=== PATIENT | female | born 1990 | race Hispanic/Latino ===

== ENCOUNTER 2021-02-04 14:03 | Day surgery (SDC) | payer OTHER ==
[2021-02-04 14:53] VITALS: BMI 38.1
[2021-02-04] MEDS ORDERED: hydrALAZINE 20 MG/ML VIAL SLOW IVP PRN (15:23)
[2021-02-04 15:50] LABS: Bilirubin Neg (Negative); Blood, Urine Negative (Negative); Clarity Clear (Clear); Glucose, Urine (Dipstick) Normal (Negative); Ketone, Urine Negative (Negative); Leukocyte 25 (Negative); Nitrite Negative (Negative); Protein, Urine (Dipstick) Negative (Neg-Trace); Specific Gravity, Urine 1.005 (1.002-1.036); Urobilinogen Normal mg/dL (Less than 2)
[2021-02-04 16:05] LABS: Bacteria/HPF 3+ HPF (None Seen); Epithelial Cast 0-3 LPF (None Seen); Mucous/LPF 1+ LPF (<2+); RBC/HPF None Seen HPF (0-3); WBC/HPF 0-3 HPF (0-3)
[2021-02-04] MEDS ORDERED: Acetaminophen 500 MG TAB PO SCH (17:00)
[2021-02-04] MEDS ORDERED: Cephalexin 500 MG CAP PO SCH (17:00)
[2021-02-04] MEDS ORDERED: Promethazine HCl 25 MG/ML VIAL IM SCH (17:00)
[2021-02-04] MEDS ORDERED: Butorphanol Tartrate 1 MG/ML VIAL IM SCH (17:00)
[2021-02-05] MEDS ORDERED: Cephalexin 500 MG CAP PO SCH (09:00)
== END 2021-02-04 17:55 | disposition home or self-care (01) ==
LOC: CSHLD/OP 14:03
PROVIDERS: ATTEND Obstetrics & Gynecology
DX: O47.1 False labor at or after 37 completed weeks of gestation (principal); O99.891 Other specified diseases and conditions complicating pregnancy; O99.013 Anemia complicating pregnancy, third trimester; R03.0 Elevated blood-pressure reading, without diagnosis of hypertension; R30.0 Dysuria; Z3A.37 37 weeks gestation of pregnancy; Z87.59 Personal history of other complications of pregnancy, childbirth and the puerperium
CPT/HCPCS: 81001; 87086; J0595; J2550

== ENCOUNTER 2021-02-12 08:33 | Outpatient (CLI) | payer OTHER ==
[2021-02-12 17:36] LABS: SARS-CoV-2 PCR by NAA Not Detected (NotDetected)
== END 2021-02-12 08:34 | disposition home or self-care (01) ==
LOC: CSHLAB 08:33
PROVIDERS: ATTEND Emergency Medicine
DX: Z01.812 Encounter for preprocedural laboratory examination (principal); Z20.822 Contact with and (suspected) exposure to COVID-19
CPT/HCPCS: U0003; U0005

== ENCOUNTER 2021-02-12 12:15 | Day surgery (SDC) | payer OTHER ==
[2021-02-12] MEDS ORDERED: hydrALAZINE 20 MG/ML VIAL SLOW IVP PRN (14:20)
== END 2021-02-12 17:40 | disposition home health service (06) ==
LOC: CSHLD/OP 12:15
DX: O99.891 Other specified diseases and conditions complicating pregnancy (principal); R03.0 Elevated blood-pressure reading, without diagnosis of hypertension; M24.20 Disorder of ligament, unspecified site; Z3A.38 38 weeks gestation of pregnancy; Z87.59 Personal history of other complications of pregnancy, childbirth and the puerperium; Z79.2 Long term (current) use of antibiotics
CPT/HCPCS: 99283

== ENCOUNTER 2021-02-15 19:00 | Inpatient (IN) | payer MEDICAID, OTHER, SELFPAY ==
[2021-02-15 20:48] VITALS: BMI 37.3
[2021-02-15] MEDS ORDERED: Ibuprofen 800 MG TAB PO PRN (21:03)
[2021-02-15] MEDS ORDERED: Promethazine HCl 25 MG/ML VIAL IM PRN (21:03)
[2021-02-15] MEDS ORDERED: hydrALAZINE 20 MG/ML VIAL SLOW IVP PRN (21:03)
[2021-02-15] MEDS ORDERED: Acetaminophen 500 MG TAB PO PRN (21:03)
[2021-02-15] MEDS ORDERED: Carboprost 250 MCG/ML AMP IM PRN (21:03)
[2021-02-15] MEDS ORDERED: Lidocaine 1% (PF) 30 ML VIAL SC PRN (21:03)
[2021-02-15] MEDS ORDERED: Misoprostol 200 MCG TAB PR PRN (21:03)
[2021-02-15] MEDS ORDERED: Ondansetron PF 4 MG/2 ML Vial IVP PRN (21:03)
[2021-02-15] MEDS ORDERED: NS w/ Oxytocin 30 units 500 ML IV SCH (21:15)
[2021-02-15] MEDS ORDERED: Lactated Ringer's 1,000 ML IV SCH (21:15)
[2021-02-15] MEDS ORDERED: Morphine 4 MG/ML VIAL SLOW IVP PRN (21:17)
[2021-02-15] MEDS ORDERED: Misoprostol 100 MCG TAB ONE (21:18)
[2021-02-15 22:00] LABS: Hemoglobin 10.3 g/dL (12.0-15.5); Mean Corpuscular HGB CONC 33.7 g/dL (32.0-36.0); Mean Corpuscular Hemoglobin 29.9 pg (27.0-33.0); Mean Corpuscular Volume 88.7 fl (81.6-98.3); Mean Platelet Volume 11.8 fl (7.4-10.4); Platelet Count 240 10x3/uL (150-450); RBC Distribution Width 13.5 % (11.5-14.5); Red Blood Cell (RBC) Count 3.45 10x6/uL (3.90-5.03); White Blood Cell (WBC) Count 11.3 10x3/uL (3.5-10.5)
[2021-02-15 22:31] LABS: Hep B Surf Ag Non-Reactive S/CO (NonReactive); Syphilis Antibody Nonreactive (Nonreactive); Syphilis Antibody Index 0.03 S/CO (<1.00 Non-Reactive)
[2021-02-15 22:38] LABS: HBSAg Index 0.17 S/CO (0-0.99)
[2021-02-16] MEDS: Misoprostol 100 MCG TAB VAG SCH ×2 (01:01→07:38)
[2021-02-16] MEDS ORDERED: Fentanyl 2 mcg/Bup 0.1% Cadd 100 ML ONE (02:09)
[2021-02-16] MEDS: NS w/ Oxytocin 30 units 500 ML IV SCH ×2 (02:48→05:08)
[2021-02-16] MEDS ORDERED: diphenhydrAMINE 25 MG CAP PO PRN (05:08)
[2021-02-16] MEDS ORDERED: Bisacodyl 10 MG SUPP PR PRN (05:08)
[2021-02-16] MEDS ORDERED: Misoprostol 200 MCG TAB VAG PRN (05:08)
[2021-02-16] MEDS ORDERED: Milk Of Magnesia 30 ML UDCUP PO PRN (05:08)
[2021-02-16] MEDS ORDERED: Lanolin Ointment 7 GM TUBE TOP PRN (05:08)
[2021-02-16] MEDS ORDERED: Benzocaine-Menthol 82.5 ML CAN TOP PRN (05:08)
[2021-02-16] MEDS ORDERED: Boostrix 0.5 ML (Tdap) VIAL IM ONE (05:08)
[2021-02-16] MEDS ORDERED: hydrALAZINE 20 MG/ML VIAL SLOW IVP PRN (05:08)
[2021-02-16] MEDS ORDERED: Ondansetron PF 4 MG/2 ML Vial IVP PRN (05:08)
[2021-02-16] MEDS ORDERED: Preparation H Ointment 28 GM TUBE PR PRN (05:08)
[2021-02-16] MEDS ORDERED: NS w/ Oxytocin 30 units 500 ML IV SCH (05:15)
[2021-02-16 06:57] LABS: #Monocytes 0.8 10x3/uL (0.0-1.1); #Neutrophils 15.7 10x3/uL (1.5-8.4); %Basophils 0.1 % (0.0-2.0); %Eosinophils 0.1 % (0.0-6.0); %Lymphocytes 9.7 % (18.0-47.0); %Monocytes 4.2 % (0.0-10.0); %Neutrophils 85.5 % (40.0-75.0); Hemoglobin 9.7 g/dL (12.0-15.5); Mean Corpuscular HGB CONC 33.4 g/dL (32.0-36.0); Mean Corpuscular Hemoglobin 29.9 pg (27.0-33.0); Mean Corpuscular Volume 89.5 fl (81.6-98.3); Mean Platelet Volume 11.4 fl (7.4-10.4); Platelet Count 222 10x3/uL (150-450); RBC Distribution Width 13.3 % (11.5-14.5); Red Blood Cell (RBC) Count 3.24 10x6/uL (3.90-5.03); White Blood Cell (WBC) Count 18.4 10x3/uL (3.5-10.5)
[2021-02-16 07:07] LABS: ALT (SGPT) Less than 6 U/L (8-55); AST (SGOT) 15 U/L (5-34); Albumin 2.6 g/dL (3.5-5.0); Alkaline Phosphatase 141 U/L (40-110); Anion Gap 13 mmol/L (10-20); BUN (Urea Nitrogen) 6 mg/dL (7.0-18.7); Bilirubin, Total 0.3 mg/dL (0.2-1.2); Calc. Creatinine Clearance 264 mL/min (70-130); Calcium 8.2 mg/dL (7.8-10.44); Carbon Dioxide 20 mmol/L (22-29); Chloride 108 mmol/L (98-107); Globulin 2.8 g/dL (2.4-3.5); Glucose 80 mg/dL (70-105); Potassium 3.9 mmol/L (3.5-5.1); Protein, Total 5.4 g/dL (6.0-8.3); Sodium 137 mmol/L (136-145)
[2021-02-16] MEDS: Ibuprofen 800 MG TAB PO SCH ×3 (07:36→21:57)
[2021-02-16] MEDS: Docusate Calcium (SURFAK) 240 MG CAP PO SCH ×2 (08:25→21:57)
[2021-02-16] MEDS: Ferrous Sulfate 325 MG TAB PO SCH ×2 (08:25→16:54)
[2021-02-16] MEDS: Prenatal Vitamin 1 TAB PO SCH (08:25)
[2021-02-16 09:37] LABS: Creatinine, Urine 49.9 mg/dL (47-110)
[2021-02-17] MEDS: Ibuprofen 800 MG TAB PO SCH ×2 (06:36→13:34)
[2021-02-17 07:59] VITALS: BP 121/78; TEMP 97.8
[2021-02-17] MEDS: Docusate Calcium (SURFAK) 240 MG CAP PO SCH (08:34)
[2021-02-17] MEDS: Prenatal Vitamin 1 TAB PO SCH (08:34)
[2021-02-17] MEDS: Ferrous Sulfate 325 MG TAB PO SCH (08:34)
== END 2021-02-17 16:00 | disposition home or self-care (01) | DRG 807 ==
LOC: CSHLD 19:18 → CSHPP 02-16 05:30
PROVIDERS: ADMIT Emergency Medicine; ATTEND Emergency Medicine
PROC: 10E0XZZ Delivery of Products of Conception, External Approach (ICD-10-PCS; principal; 2021-02-16)
PROC: 0HQ9XZZ Repair Perineum Skin, External Approach (ICD-10-PCS; 2021-02-16)
DX: O99.214 Obesity complicating childbirth (principal); Z37.0 Single live birth; O92.013 Retracted nipple associated with pregnancy, third trimester; Z3A.39 39 weeks gestation of pregnancy; O70.0 First degree perineal laceration during delivery; R03.0 Elevated blood-pressure reading, without diagnosis of hypertension; O99.892 Other specified diseases and conditions complicating childbirth
CPT/HCPCS: 36415; 80053; 82570; 84156; 85025; 85027; 86780; 86850; 86900; 86901; 87340; J2270; J2590; J7120